=== PATIENT | female | born 1945 | race Caucasian/White ===

== ENCOUNTER 2024-07-22 11:04 | Emergency (ER) | payer OTHER ==
[2024-07-22 11:10] VITALS: PULSE 70; RESP 18; TEMP 98; BMI 27.5
[2024-07-22 12:41] LABS: EPITHELIAL CELLS 0-5 /hpf
[2024-07-22 13:47] VITALS: BP 156/57
== END 2024-07-22 13:54 | disposition home or self-care (01) ==
LOC: FER 11:04
DX: N39.0 Urinary tract infection, site not specified (principal); L29.2 Pruritus vulvae; T37.8X5A Adverse effect of other specified systemic anti-infectives and antiparasitics, initial encounter
CPT/HCPCS: 81003; 81015; 87086; 99283-25